=== PATIENT | male | born 1960 | race Caucasian/White ===

== ENCOUNTER 2016-03-22 00:57 | Emergency (ER) | payer OTHER ==
[~2016-03-22] VITALS: Ht 177.8 cm; Wt 98.9 kg
[~2016-03-22 00:57] MED LIST: FLEXERIL10 MG PO; LEVSIN/SL0.125 MG PO; MOBIC15 MG PO; MOTRIN 600 MG600 MG PO; PERCOCET 325 MG1 TA2 PO; PERCOCET 325 MG1 TAB PO; TRAMADOL50 MG PO; ZOFRAN4 M1 SL
--- NOTE | 2016-03-22 02:42 | ED GENERAL ADULT ---
History of Present Illness General Chief Complaint: Low Back Pain/Injury Stated Complaint: LOWER BACK PAIN SEES PAIN MANGEMENT C/O ELBOW PAIN Source: patient Exam Limitations: no limitations Vital Signs & Intake/Output Vital Signs & Intake/Output Vital Signs Date Time Temp Pulse Resp B/P Pulse O2 O2 Flow FiO2 Ox Delivery Rate 03/22 0310 96.8 78 18 142/80 100 Room Air 03/22 0122 98.8 77 16 148/91 97 Room Air Room Air Allergies Coded Allergies: MDX - Aspirin (ASPIRIN) (OVERDOSED CHILD 06/26/14) OVERDOSED CHILD PER ER NURSE MELANY. -- OMAIRA 06/26/14 Reconcile Medications Oxycodone HCl/Acetaminophen (Percocet 10-325 MG Tablet) 10 MG-325 MG TABLET 1 TAB PO 4 TIMES/DAY PRN pain ten... [id number] Triage Note: 55YO MALE TO TRIAGE W/CO LOW BACK PAIN. STATES HE "IS MOVING OUT OF STATE AND IS FINISHED W/PAIN MANAGEMENT IN [place] AND HAS NO MEDS" STATES HE USUALLY TAKES "PERCOCET 10MG" Triage Nurses Notes Reviewed? yes HPI: Patient is a 52-year-old gentleman with chronic low back pain who takes Percocet to control her pain every 6 hours, 10 mg. Patient followed up with pain clinic but now is willing to [place] to take care of his dad run out of the Percocet and he wants a few of it to get there and set up appointment with the pain clinic. His pain is 9 out of 10 sharp on the right lower back and lower lumbar vertebra. He also complains of pain in the knee knees bilaterally due to osteoarthritis and also mentions a swelling of the right elbow. Denies any recent trauma, or injury recent increase in pain. (SCOTT NIXON,[facility]) Past History Travel History Traveled to [place] past 21 day No Medical History Any Pertinent Medical History? 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 No (LAURA CHAVEZ MD) Review of Systems Review of Systems Constitutional: Denies: chills, fever. EENTM: Reports: no symptoms. Respiratory: Reports: no symptoms. Cardiovascular: Reports: no symptoms. GI: Reports: no symptoms. Genitourinary: Reports: no symptoms. Musculoskeletal: Reports: back pain, joint pain, joint swelling (right elbow). Skin: Reports: no symptoms. Neurological/Psychological: Reports: no symptoms. Hematologic/Endocrine: Denies: bruising, bleeding, polyuria. (LAURA CHAVEZ MD) Physical Exam Physical Exam General Appearance: well developed/nourished, no apparent distress, alert, awake , comfortable Head: atraumatic, normal appearance Eyes: Bilateral: normal appearance, PERRL, EOMI. Ears, Nose, Throat: normal pharynx, normal ENT inspection, hearing grossly normal Neck: normal inspection, supple, full range of motion Respiratory: normal breath sounds, chest non-tender, no respiratory distress Cardiovascular: regular rate/rhythm Peripheral Pulses: 2+ radial (R), 2+ radial (L) Gastrointestinal: normal bowel sounds, soft, non-tender Back: normal inspection, normal range of motion, tenderness on the lumbar spine and lateral right pelvic area Extremities: normal capillary refill, normal range of motion, swelling of right elbow, nontender, nonerythematous Core Measures ACS in differential dx? No CVA/TIA Diagnosis: No Severe Sepsis Present: No Septic Shock Present: No (LAURA CHAVEZ MD) Progress Differential Diagnoses I considered the following diagnoses in my evaluation of the patient: [chronic low back pain with disc herniation, right elbow osteoarthritis with swelling, bilateral knee osteoarthritis] Plan of Care: Patient is driving to [place] and moving out of the state. We will give 6 pills of percocet for pain control. He will follow up with pain clinic once arriving in [place]. Initial ED EKG: none (LAURA CHAVEZ MD) Departure Departure Time of Disposition: 312 Disposition: HOME OR SELF CARE Condition: Stable Clinical Impression Primary Impression: Low back pain Referrals: JOSUE RUSSELL,MARIAH Davies (PCP/Family) Additional Instructions: Please follow up with pain management clinic when you arrive in [place]. wrap Nadir bandage around your right elbow for the swelling. May need to be drained if swelling gets worse. Departure Forms: Customer Survey General Discharge Information Prescriptions: Current Visit Scripts Oxycodone HCl/Acetaminophen (Percocet 10-325 MG Tablet) 1 TAB PO 4 TIMES/DAY PRN pain #10 TAB ten... [id number] (ALURA CHAVEZ MD) Resident Co-Sign Statement Statement: ED Attending supervision documentation- [x] I saw and evaluated the patient. I have also reviewed all the pertinent lab results and diagnostic results. I agree with the findings and the plan of care as documented in the Resident's documentation. [] I have reviewed the ED Record and agree with the Resident's documentation. [] Additions or exceptions (if any) to the Resident's note and plan are summarized below: [] (OSCAR NIXON,RONAL Hayes) Critical Care Note Critical Care Note Critical Care Time: non-applicable (LAURA CHAVEZ MD)
[2016-03-22] MEDS ORDERED: PERCOCET 10-321 EACH PO (03:01)
[2016-03-22 03:10] VITALS: BP 142/80
== END 2016-03-22 03:11 ==
LOC: ERH 00:57
DX: M54.5 Low back pain (principal)